=== PATIENT | male | born 1950 | race Caucasian/White ===

== ENCOUNTER → 2018-03-22 | Outpatient (CLI) | payer OTHER | END | disposition home or self-care (01) | LOC: ROC 03-14 11:35 | PROVIDERS: ATTEND Radiology Radiation Oncology | DX: C61 Malignant neoplasm of prostate (principal); M54.2 Cervicalgia; G89.29 Other chronic pain; Z85.828 Personal history of other malignant neoplasm of skin | CPT/HCPCS: 99214; G0463 ==

== ENCOUNTER 2018-04-23 07:44 | Outpatient (CLI) | payer OTHER ==
[2018-04-23] MEDS ORDERED: MIDAZOLAM 1 MG/ML, 5ML IVPush ONE (11:55)
[2018-04-23] MEDS ORDERED: FENTANYL PF 100 MCG/2ML IVPush ONE (11:56)
[2018-04-23] MEDS ORDERED: LIDOCAINE/PF 1%, 30ML IV ONE (11:57)
== END 2018-04-23 23:59 | disposition home or self-care (01) ==
LOC: ROC 07:44
PROVIDERS: ATTEND Radiology Radiation Oncology
DX: C61 Malignant neoplasm of prostate (principal)
CPT/HCPCS: 55876; 76942; 77332; 99156; A4648; J2250; J3010; J3490

== ENCOUNTER 2018-04-29 10:14 | Outpatient (CLI) | payer OTHER | END 2018-04-29 23:59 | disposition home or self-care (01) | LOC: CFH 10:14 | PROVIDERS: ATTEND Radiology Radiation Oncology | DX: C61 Malignant neoplasm of prostate (principal) | CPT/HCPCS: 72195 ==